=== PATIENT | male | born 1980 | race Caucasian/White ===

== ENCOUNTER 2022-10-17 03:30 | Emergency (ER) | payer OTHER ==
[~2022-10-17] VITALS: Ht 177.8 cm; Wt 74.8 kg
[2022-10-17 03:32] VITALS: BP 112/76
--- NOTE | 2022-10-17 03:32 | NUR ---
YULI ARANDA TO BED #7
--- NOTE | 2022-10-17 03:37 | NUR ---
DR. COSME AT BEDSIDE
[2022-10-17] MEDS ORDERED: ONDANSETRON 4 MG/2 ML VIAL IVP ONE (03:40)
[2022-10-17] MEDS ORDERED: NACL 0.9% 1,000 ML IV ONE (03:40)
[2022-10-17 05:34] LABS: HEMATOCRIT 41.9 % (36-52); HEMOGLOBIN 13.5 g/dL (12.0-18.0); MEAN CORPUSCULAR HEMOGLOBIN 29 pg (27-31); MEAN CORPUSCULAR HGB CONC 32 g/dL (33-37); MEAN CORPUSCULAR VOLUME 89.1 fL (80-94); PLATELET COUNT (AUTO) 237 K/uL (140-450); RED CELL DISTRIBUTION WIDTH 13.8 % (11.6-13.7); WHITE BLOOD COUNT (AUTO) 15.8 K/uL (4.8-10.8)
[2022-10-17 05:58] LABS: ALBUMIN 3.5 g/dL (3.4-5.0); ANION GAP 13.9 (8-16); CARBON DIOXIDE 27.2 mmol/L (21-32); CREATININE 0.9 mg/dL (0.6-1.3); POTASSIUM 4.1 mmol/L (3.5-5.1); TOTAL BILIRUBIN 0.2 mg/dL (0.0-1.0)
[2022-10-17 06:00] LABS: BASOPHILS % (MANUAL) 0 % (0-2); EOSINOPHILS % (MANUAL) 0 % (0-4); LYMPHOCYTES % (MANUAL) 14 % (20-46); MONOCYTES % (MANUAL) 6 % (5-12)
[2022-10-17 06:50] VITALS: BP 112/76
--- NOTE | 2022-10-17 06:50 | NUR ---
Patient discharged with v/s stable. Written and verbal after care instructions given and explained. Patient verbalized understanding. Ambulatory with steady gait. All questions addressed prior to discharge. Advised to follow up with PMD. DX: ALCOHOL USE DISORDER
[2022-10-17 07:30] LABS: BARBITURATE, URINE NEGATIVE ng/ml (NEG <=200); BENZODIAZEPINE, URINE NEGATIVE ng/mL (NEG <=200); CANNABINOID, URINE POSITIVE ng/mL (NEG <=50); COCAINE, URINE NEGATIVE ng/mL (NEG <=300); OPIATE, URINE NEGATIVE ng/mL (NEG <=2000); PHENCYCLIDINE SCREEN,URINE NEGATIVE ng/mL (NEG <=25)
== END 2022-10-17 06:50 | disposition home or self-care (01) ==
LOC: MED 03:30
DX: F10.129 Alcohol abuse with intoxication, unspecified (principal); F12.90 Cannabis use, unspecified, uncomplicated
CPT/HCPCS: 36415; 80053; 80305; 85025; 96361; 96374; 99283; G0482; J2405; J7030